=== PATIENT | male | born 1990 | race Caucasian/White ===

== ENCOUNTER 2020-09-22 10:15 | Emergency (ER) | payer OTHER ==
[~2020-09-22] VITALS: Ht 188 cm; Wt 83.9 kg
--- NOTE | 2020-09-22 10:58 | NUR ---
PT STATES HE FEELS LIKE HIS HEART IS TWITCHING STATES IT STARTED ABOUT 1 HOUR AGO. DENIES PMH OF CARDIAC ISSUES. PT ON ALL MONITORS.
[2020-09-22] MEDS ORDERED: DILTIAZEM 5 MG/ML, 5ML IVPush STA (11:19)
[2020-09-22] MEDS ORDERED: SODIUM CHLORIDE 0.9% 1,000ML IVBOLUS ONE (11:30)
[2020-09-22] MEDS ORDERED: SODIUM CHLORIDE FLUSH 10ML SYR IVF ONE (11:30)
[2020-09-22] MEDS ORDERED: DILTIAZEM 5 MG/ML, 5ML ONE (11:37)
[2020-09-22 11:47] LABS: BASOPHILS % (AUTO) 2 % (0-1); EOSINOPHILS % (AUTO) 1 % (1-7); LYMPHOCYTES % (AUTO) 44 % (22-44); MEAN CORPUSCULAR HEMOGLOBIN 28.9 pg (27.5-34.5); MEAN CORPUSCULAR HGB CONC 33.4 g/dL (33.2-36.2); MEAN PLATELET VOLUME 9.6 fL (7.4-10.4); MONOCYTES % (AUTO) 6 % (2-9); NEUTROPHILS % (AUTO) 46 % (42-75); PLATELET COUNT 231 x10^3/uL (130-400); RED BLOOD COUNT 5.83 x10^6/uL (4.38-5.82)
[2020-09-22] MEDS ORDERED: ACYC-57 PO (11:47)
--- NOTE | 2020-09-22 11:50 | NUR ---
PT MEDICATED PER EMAR. HR DOWN FROM 143 BPM, TO 99BPM , STILL IN A-FIB. PT RESTING CALMLY IN BED AT THIS TIME. PT STATED HE CAN FEEL HIS HR SLOW DOWN. WILL CONTINUE TO MONITOR.
[2020-09-22 12:00] VITALS: BP 103/71
[2020-09-22 12:13] LABS: ANION GAP 4 mmol/L (5-15); CHLORIDE 106 mmol/L (98-107)
[2020-09-22 12:16] LABS: ALANINE AMINOTRANSFERASE 29 U/L (12-78); ALBUMIN 4.6 g/dL (3.4-5.0); ALKALINE PHOSPHATASE 67 U/L (45-117); BILIRUBIN,TOTAL 0.8 mg/dL (0.2-1.0); CALCIUM 9.8 mg/dL (8.5-10.1); TOTAL PROTEIN 8.3 g/dL (6.4-8.2); TROPONIN I < 0.015 ng/mL (0.000-0.045)
[2020-09-22] MEDS ORDERED: PROPOFOL 10 MG/ML, 20ML IVPush ONE (12:30)
[2020-09-22] MEDS ORDERED: PROPOFOL 10 MG/ML, 20ML ONE (13:06)
[2020-09-22] MEDS ORDERED: ACETAMINOPHEN 500 MG TABLET ONE (14:44)
[2020-09-22] MEDS ORDERED: ACETAMINOPHEN 500 MG TABLET PO ONE (15:00)
== END 2020-09-22 15:26 | disposition home or self-care (01) ==
LOC: ED 15:25
DX: I48.91 Unspecified atrial fibrillation (principal); R07.89 Other chest pain
CPT/HCPCS: 36415; 71045; 80053; 83735; 83880; 84443; 84484; 85025; 92960; 93005; 96361; 96374; 99285; J2704; J7030

== ENCOUNTER 2020-09-24 15:48 | Emergency (ER) | payer OTHER ==
[~2020-09-24] VITALS: Ht 188 cm; Wt 81.6 kg
[~2020-09-24 15:48] MED LIST: ACYC-57 PO
[2020-09-24 15:53] VITALS: BP 121/75
--- NOTE | 2020-09-24 16:24 | NUR ---
FIRST CONTACT WITH PT: SEEN TUESDAY FOR RAPID AFIB, CARDIOVERTED. TODAY FEELING SAME SYMPTOMS. PT ATTACHED TO CARDIC MONITOR. PAC'S OBERVERD ON MONITOR CONSISTANT WITH WHEN PT STATES HIS HEART "BOLTS". BRIAN. THIERNO. AWAITNG ORDERS.
--- NOTE | 2020-09-24 17:00 | NUR ---
Patient given discharge instructions and they have confirmed that they understand the instructions. Patient ambulatory with steady gait. NAD, all questions answered appropriately, denies additional needs at this time. No personal belongings left in room after discharge.
== END 2020-09-24 17:02 | disposition home or self-care (01) ==
LOC: ED 17:00
DX: I48.0 Paroxysmal atrial fibrillation (principal); I49.1 Atrial premature depolarization
CPT/HCPCS: 93005; 99283